=== PATIENT | male | born 1995 | race Asian ===

== ENCOUNTER 2017-07-30 16:12 | Emergency (ER) | payer OTHER ==
--- NOTE | 2017-07-30 16:32 | EDPHY ---
H & P Stated Complaint: colonoscopy yesterday/now with n/v ?blood in emesis/stool Time Seen by Provider: 07/30/17 16:19 HPI/ROS: CHIEF COMPLAINT: Burping, throat burning, diarrhea possibly blood in vomit HISTORY OF PRESENT ILLNESS: The patient is a 21-year-old man who had been complaining of weird colored and shape stools over the last few years. He states that his stool was occasionally green or black and occasionally very watery. He was seen by [facility] in yesterday doctor mostly performed a colonoscopy and upper endoscopy. Patient states that since leaving the procedure he has been belching a lot and having burning sensation in his throat and vomited once this morning with what appeared to be dark blood in the toilet. He has also had loose stool. No fevers. No abdominal pain. REVIEW OF SYSTEMS: Constitutional: denies: chills, fever, recent illness, recent injury EENTM: denies: blurred vision, double vision, nose congestion Respiratory: denies: cough, shortness of breath Cardiac: denies: chest pain, irregular heart rate, lightheadedness, palpitations Gastrointestinal/Abdominal: See HPI Genitourinary: denies: dysuria, frequency, hematuria, pain Musculoskeletal: denies: joint pain, muscle pain Skin: denies: lesions, rash, jaundice, bruising Neurological: denies: headache, numbness, paresthesia, tingling, dizziness, weakness Hematologic/Lymphatic: denies: blood clots, easy bleeding, easy bruising Immunologic/allergic: denies: HIV/AIDS, transplant EXAM: GENERAL: Well-appearing, well-nourished and in no acute distress. HEAD: Atraumatic, normocephalic. EYES: Pupils equal round and reactive to light, extraocular movements intact, sclera anicteric, conjunctiva are normal. ENT: TMs normal, nares patent, oropharynx clear without exudates. Moist mucous membranes. NECK: Normal range of motion, supple without lymphadenopathy or JVD. LUNGS: Breath sounds clear to auscultation bilaterally and equal. No wheezes rales or rhonchi. HEART: Regular rate and rhythm without murmurs, rubs or gallops. ABDOMEN: Soft, nontender, normoactive bowel sounds. No guarding, no rebound. No masses appreciated. BACK: No CVA tenderness, no spinal tenderness, step-offs or deformities EXTREMITIES: Normal range of motion, no pitting or edema. No clubbing or cyanosis. NEUROLOGICAL: Cranial nerves II through XII grossly intact. Normal speech, normal gait. 5/5 strength, normal movement in all extremities, normal sensation PSYCH: Normal mood, normal affect. SKIN: Warm, dry, normal turgor, no visible rashes or lesions. Source: Patient Exam Limitations: No limitations - Personal History Current Tetanus/Diphtheria Vaccine: Yes - Medical/Surgical History Hx Asthma: No Hx Chronic Respiratory Disease: No Hx Diabetes: No Hx Cardiac Disease: No Hx Renal Disease: No Hx Cirrhosis: No Hx Alcoholism: No Hx HIV/AIDS: No Hx Splenectomy or Spleen Trauma: No Other PMH: blood in stool - Family History Significant Family History: No pertinent family hx - Social History Smoking Status: Current every day smoker Alcohol Use: Sober Drug Use: None Constitutional: Initial Vital Signs Temperature (C) 37 C 07/30/17 16:15 Heart Rate 73 07/30/17 16:15 Respiratory Rate 18 07/30/17 16:15 Blood Pressure 117/67 07/30/17 16:15 O2 Sat (%) 95 07/30/17 16:15 O2 Delivery Mode Room Air Allergies/Adverse Reactions: No Known Allergies Allergy (Unverified 07/30/17 16:15) Home Medications: Medication Instructions Recorded NK [No Known Home Meds] 07/30/17 Medical Decision Making ED Course/Re-evaluation: 4:50 p.m. I discussed the case with Dr. Mora from [facility]. She has reviewed the patient's procedures yesterday. She states that he had a few biopsies in the stomach and this would account for the small amount of blood in his vomit. The throat burning is likely from being intubated and the belching would be expected. She states that the colonoscopy was extremely low risk because that was not insufflated and the procedure was abandoned fairly soon because his colon Had not been cleaned out. The patient states he had eaten the night before. She suggested GI cocktail and discharged to follow up and call them in the next day or 2 if his symptoms did not improve. I spoke with the patient about this and he feels comfortable with this plan. Abdominal exam remains benign. We discussed indications for returning. Differential Diagnosis: Partial list of the Differential diagnosis considered include but were not limited to; procedure complication, bleeding, peptic ulcer disease, perforation and although unlikely based on the history and physical exam, I also considered ischemia, volvulus. I discussed these differential diagnoses and the plan with the patient as well as the usual and expected course. The patient understands that the diagnosis is provisional and that in medicine we are not always correct and that further workup is often warranted. Usual and customary warnings were given. All of the patient's questions were answered. The patient was instructed to return to the emergency department should the symptoms at all worsen or return, otherwise to followup with the physician as we discussed. Departure - Departure Disposition: Home, Routine, Self-Care Clinical Impression: Vomiting, UPPER ENDOSCOPY sequela Condition: Fair Instructions: Acute Nausea and Vomiting (ED) Referrals: Chadd Brar [Medical Doctor] - As per Instructions
[2017-07-30] MEDS ORDERED: HYOSCYAMINE SULFATE 0.125 MG TAB PO ONE (16:43)
[2017-07-30] MEDS ORDERED: LIDOCAINE 2% VISCOUS 15 ML UDCUP PO ONE (16:43)
[2017-07-30] MEDS ORDERED: MAG HYDROX/AL HYDROX/SIMETH 30 ML UDCUP PO ONE (16:43)
[2017-07-30 17:17] VITALS: BP 119/62
== END 2017-07-30 17:18 | disposition home or self-care (01) ==
DX: R11.10 Vomiting, unspecified (principal); F17.200 Nicotine dependence, unspecified, uncomplicated